=== PATIENT | female | born 1945 | race African-American/Black ===

== ENCOUNTER 2017-02-19 16:22 | Emergency (ER) | payer MEDICARE, OTHER ==
[~2017-02-19] VITALS: Ht 165.1 cm; Wt 114.3 kg
--- NOTE | 2017-02-19 17:04 | PHYS DOC ---
Past Medical History Past Medical History: Diabetes-Type II, Hypertension, Stroke, Other Additional Past Medical Histor: angioedema Past Surgical History: Cholecystectomy, Hysterectomy, Other Additional Past Surgical Histo: thyroidectomy Alcohol Use: None Drug Use: None Adult General Chief Complaint Chief Complaint: LOWER EXT PAIN HPI HPI 71-year-old female with a history of DVTs and pulmonary emboli who presents the emergency department with right lower extremity pain for approximately 1-1/2 weeks. She describes as a cramping throbbing pain that is nonradiating. It is mild and associated with mild swelling of the right leg. She denies any redness of her skin. She denies any weakness. Her pain is mainly in the groin. She was on warfarin for 3 years per reports being taken off it and instructed to take aspirin daily. Otherwise she denies any trauma to the extremity. Review of systems is negative for chest pain shortness of breath abdominal pain nausea vomiting fevers or chills. All other review of systems is negative unless otherwise noted in history of present illness. Review of Systems Review of Systems SEE ABOVE. Allergies Allergies Allergies Coded Allergies Type Severity Reaction Last Updated Verified lisinopril Allergy Severe swelling 01/28/14 Yes cefadroxil Allergy Intermediate Hives 01/28/14 Yes codeine Allergy Mild Nausea 01/28/14 Yes loperamide HCl Allergy Mild Diarrhea 01/28/14 Yes Physical Exam Physical Exam Constitutional: Well developed, well nourished, no acute distress, non-toxic appearance. HENT: Normocephalic, atraumatic, bilateral external ears normal, oropharynx moist, no oral exudates, nose normal. [] Eyes: PERRLA, EOMI, conjunctiva normal, no discharge. Neck: Normal range of motion, no tenderness, supple, no stridor. [] Cardiovascular:Heart rate regular rhythm, no murmur [] Lungs & Thorax: Bilateral breath sounds clear to auscultation Abdomen: Bowel sounds normal, soft, no tenderness, no masses, no pulsatile masses. [] Skin: Warm, dry, no erythema, no rash. Back: No tenderness, no CVA tenderness. [] Extremities: The patient's right lower extremity is warm and well perfused with palpable pulse. It is symmetric to the patient's left leg. Normal neurovascular status present. 2 second cap refill. There is tenderness along the venous system. No erythema present. The remainder the patient's extremities are nontender with normal range of motion. Neurologic: Alert and oriented X 3, normal motor function, normal sensory function, no focal deficits noted. Psychologic: Affect normal, judgement normal, mood normal. [] Current Patient Data Vital Signs Vital Signs Date Time Temp Pulse Resp B/P Pulse Ox O2 Delivery O2 Flow Rate FiO2 02/19/17 16:28 97.9 80 20 169/62 99 Room Air 97.9 Lab Values Laboratory Tests Test 02/19/17 17:25 Prothrombin Time 12.5SEC (11.7-14.0) Prothrombin Time INR 1.0 (0.8-1.1) PTT 30SEC (24-38) EKG EKG [] Radiology/Procedures Radiology/Procedures [] Course & Med Decision Making Course & Med Decision Making Pertinent Labs and Imaging studies reviewed. (See chart for details) [] 71-year-old female presenting to the emergency department with right lower extremity pain. Afebrile with a normal heart rate. Saturating 90% in the examination room. Pertinent physical exam findings showed tenderness along the right venous system. Ultrasound ordered and neg for DVT. The patient was in discharged home to follow up with PCP over the next 2-3 days if her symptoms continued. [id number] discharge instructions given. Patient and here with her today comfortable with plan. Dragon Disclaimer Dragon Disclaimer This electronic medical record was generated, in whole or in part, using a voice recognition dictation system. Departure Departure Impression: Primary Impression: Left leg pain Additional Impression: Left groin pain Disposition: 01 HOME, SELF-CARE Condition: STABLE Referrals: NORI CONRAD MD (PCP) Additional Instructions: Thank you for allowing us to participate in your care today. Followup with your primary care physician in 3 days if your symptoms do not improve. If you do not have a primary care provider you can ask for a list of our primary care providers. Return to the emergency department you have any new or concerning findings. This should be evaluated by the primary care physician and any necessary consulting services for continued management within a few days after discharge. Return to emergency room if you have any new or concerning symptoms including but not limited to fever, chills, nausea, vomiting, intractable pain, any new rashes, chest pain, shortness of air, uncontrolled bleeding, difficulty breathing, and/or vision loss. Problem Qualifiers RADHA MACKEY MD Feb 19, 2017 17:04
--- NOTE | 2017-02-19 17:30 | RAD ---
PROCEDURE Right lower extremity venous duplex Doppler ultrasound HISTORY Right leg pain and swelling TECHNIQUE Grayscale and duplex Doppler sonography were utilized COMPARISON No prior FINDINGS No evidence of deep venous thrombosis by grayscale imaging with compressibility, patent color Doppler blood flow, respiratory variability and augmentation of blood flow of the right common femoral vein, profunda femoral vein, superficial femoral vein and popliteal vein. Limited visualization of the calf veins by color Doppler sonography and limited grayscale visualization of the femoral veins due to body habitus. IMPRESSION Negative right leg for deep venous thrombosis as described above Electronically signed by: Jason Colunga MD (Feb 19, 2017 17:28:59)
[2017-02-19 17:42] LABS: PROTHROMBIN TIME PATIENT 12.5 SEC (11.7-14.0)
[2017-02-19] MEDS ORDERED: PREDNISONE 20 MG TABLET ONE (17:43)
[2017-02-19 17:48] VITALS: BP 142/74
== END 2017-02-19 18:25 | disposition home or self-care (01) ==
LOC: ER 16:22
DX: M79.604 Pain in right leg (principal); R10.30 Lower abdominal pain, unspecified; M79.89 Other specified soft tissue disorders; I10 Essential (primary) hypertension; E11.9 Type 2 diabetes mellitus without complications; Z88.5 Allergy status to narcotic agent; Z88.8 Allergy status to other drugs, medicaments and biological substances; Z86.718 Personal history of other venous thrombosis and embolism; Z86.73 Personal history of transient ischemic attack (TIA), and cerebral infarction without residual deficits; Z79.01 Long term (current) use of anticoagulants; Z79.82 Long term (current) use of aspirin; Z86.711 Personal history of pulmonary embolism
CPT/HCPCS: 36415; 85610; 85730; 93971; 99285-25

== ENCOUNTER 2018-02-23 17:51 | Emergency (ER) | payer OTHER ==
[2018-02-23] MEDS: FAMOTIDINE 20 MG TABLET. PO (18:39)
[2018-02-23] MEDS: predniSONE 20 MG TABLET PO (18:39)
== END 2018-02-23 18:51 | disposition home or self-care (01) ==
LOC: ER 17:51
DX: T78.3XXA Angioneurotic edema, initial encounter (principal); T88.7XXA Unspecified adverse effect of drug or medicament, initial encounter; T46.4X5A Adverse effect of angiotensin-converting-enzyme inhibitors, initial encounter; E11.9 Type 2 diabetes mellitus without complications; I10 Essential (primary) hypertension; E89.0 Postprocedural hypothyroidism; E78.5 Hyperlipidemia, unspecified; Z86.73 Personal history of transient ischemic attack (TIA), and cerebral infarction without residual deficits; Z90.49 Acquired absence of other specified parts of digestive tract; Z90.710 Acquired absence of both cervix and uterus; Z88.8 Allergy status to other drugs, medicaments and biological substances; Z88.5 Allergy status to narcotic agent
CPT/HCPCS: 99283; J7512